=== PATIENT | male | born 1960 | race Caucasian/White ===

== ENCOUNTER 2024-04-05 15:36 | Emergency (ER) | payer MEDICARE, SELFPAY ==
[2024-04-05 16:00] VITALS: BP 106/73; PULSE 102; RESP 16; TEMP 36.9; O2SAT 94; BMI 19.0
--- NOTE | 2024-04-05 16:22 | ED_ITS ---
HPI - General Adult General: Chief complaint: General Medical Stated complaint: Feeding tube is clogged Time Seen by Provider: 04/05/24 15:47 History of Present Illness: 63-year-old male who presents to the [facility] room with complaints of blockage of his jejunostomy tube. It was placed 1 month ago. This was done at [facility]. He has not been able to infuse any liquid through it since yesterday. He denies any vomiting. No fever sweats or chills. No chest pain or abdominal pain. Associated symptoms: Deny chest pain, dyspnea or rash Related Data Allergies Allergy/AdvReac Type Severity Reaction Status Date / Time No Known Allergies Allergy Verified 04/05/24 16:03 Review of Systems Const: Denies: fever(s) or chills Card: Denies: chest pain Resp: Denies: dyspnea GI: Denies: abdominal pain : Denies: dysuria, urinary frequency or urinary urgency Musc: Denies: neck pain or back pain Skin/Breast: Denies: rash Physical Exam Const: COMMON NORMALS: no acute distress GENERAL APPEARANCE: cooperative and comfortable ORIENTATION/CONSCIOUSNESS: Yes awake, Yes oriented to person, Yes oriented to place and Yes oriented to time HENMT: COMMON NORMALS: normocephalic, atraumatic and hearing grossly normal bilaterally HEAD & SCALP: normocephalic and atraumatic Resp: COMMON NORMALS: normal respiratory effort, No retractions, No use of accessory muscles and clear to auscultation bilaterally AUSCULTATION: clear to auscultation bilaterally Cardio: COMMON NORMALS: regular rate, regular rhythm and No murmurs present (Cardio) RATE: regular rate RHYTHM: regular rhythm GI: COMMON NORMALS: Soft to palpation and No hepatosplenomegaly present AUSCULTATION: Yes normoactive bowel sounds PALPATION: Yes Soft to palpation, No Tenderness to palpation present (GI), No Guarding due to palpation present (GI) and Yes No hepatosplenomegaly present Extremity: COMMON NORMALS: normal to inspection, capillary refill normal, no clubbing, cyanosis or edema, no calf tenderness and no pedal edema Neuro: SENSORIUM/ORIENTATION: Yes oriented to person, Yes oriented to place and Yes oriented to time Skin: COMMON NORMALS: no rashes or lesions noted GENERAL SKIN EXAM: no rashes or lesions noted Course Vital Signs: Vital signs: Vital Signs Temperature 98.4 F 04/05/24 16:00 Pulse Rate 85 04/05/24 18:09 Respiratory Rate 16 04/05/24 16:00 Blood Pressure 99/74 04/05/24 18:09 Pulse Oximetry 94 04/05/24 18:09 Oxygen Delivery Me thod Room Air 04/05/24 17:14 MDM - General Adult Medical Decision Making Unable to flush PEG tube. He had a visit from home health nurse and advised him come to the emergency room. He has a tube that is essentially jejunostomy tube he had a placed about a month ago [facility] he is able to eat and drink. We do not have the equipment to replace urine and think we would be able to successfully do so and get a place back the way it was. I had Dr. Padgett look at it he concurs. He recommends leaving in place having patient follow-up with [facility] since he can still eat and drink and does not rely on the tube this can wait until next week. If he has worsening problems return to the emergency room. Lab Data Radiology Impressions Abdomen X-Ray 04/05/24 16:30 IMPRESSION: 1. Gastrojejunostomy tube tip presumably in the proximal jejunum. 2. Large volume colonic stool retention. Other degenerative and postsurgical findings detailed above. All radiology interpretation(s) finalized by discharge Discharge Plan Discharge Patient Disposition: Home Clinical Impression: Complication of feeding tube Condition: Stable Discharge Orders: Discharge ED (Routine); Ordered 04/05/24 Ordered By: Kimo White Discharge Diet: Usual diet Discharge Activity: Resume usual activity Patient Instructions: Opioid Safety, Pain Management Activity Restrictions/Additional Instructions: Thank you for choosing [facility] for your healthcare needs today. It is very important that you follow up as instructed or that you return to the Emergency Department should you have concerns or if your condition changes or worsens in any way. You are seen in the emergency room with complications of your feeding tube at this point your feeding tube was clogged or not able to flush it or even break up the clogged by probing. We do not have the appropriate equipment to replace this. That will need to be done at [facility]. We did have the surgeon come and see you in the emergency room and he concurred. Since you are still able to eat and drink by mouth recommend that you continue to take food and drink orally and follow-up as soon as you are able with [facility] to make arrangements for correcting the problem with the tube. If you have further problems or you develop nausea or vomiting return to the emergency room. Coding Level of Care Code ED Food Safety Technician for T[facility] Luna
--- NOTE | 2024-04-05 16:30 | XRR_ITS ---
PROCEDURE INFORMATION: Exam: XR Abdomen Exam date and time: 04/05/2024 4:50 PM Age: 63 years old Clinical indication: Device placement; Gi device; Gastrostomy, other and jejunostomy and peg tube; Prior surgery; Surgery date: 6+ months; Patient HX: Peg/gj tube malfunction; Pancreatitis; G/gj placed x 1 mo ago TECHNIQUE: Imaging protocol: Radiologic exam of the abdomen. Views: Frontal supine view of the abdomen. 1 View. COMPARISON: No relevant prior studies available. FINDINGS: Gastrointestinal tract: Large amount of retained colonic stool. Gastrojejunostomy overlying the central abdomen with the tip presumably in the proximal jejunum. Bones/joints: [id number] levoscoliosis of the upper lumbar spine. Multilevel lumbar fusion hardware at L3-L5. Moderate to severe degenerative discogenic changes of the right side of L2-L3 endplates. XR/XR abdomen 1V* [id number] IMPRESSION: 1. Gastrojejunostomy tube tip presumably in the proximal jejunum. 2. Large volume colonic stool retention. Other degenerative and postsurgical findings detailed above.
[2024-04-05 17:14] VITALS: BP 110/76; O2SAT 95
--- NOTE | 2024-04-05 17:57 | PM.CONSULT ---
Providers/Reason For Consult Consulting Physician/Specialty*: General Surgery Reason for Consult*: Occluded jejunostomy History of Present Illness History of Present Illness Jarrod Wiley is a 63 year old male who has history of chronic pancreatitis and gastric outlet obstruction and who about a month ago had a percutaneous gastrojejunostomy tube placement in [place] for nutritional supplementation, he has been doing nutritional supplementation every night and gaining weight bath since 2 nights ago he noticed the tube has been clotted and he does not allow it to be flushed. Review of Systems General: Reports: 10 or more systems reviewed and unremarkable except in HPI and below Medications/Allergies Allergies Allergy/AdvReac Type Severity Reaction Status Date / Time No Known Allergies Allergy Verified 04/05/24 16:03 Vitals/I&O/Wt Last Vital Signs Temp 98.4 F 04/05/24 16:00 Pulse 102 H 04/05/24 16:00 Resp 16 04/05/24 16:00 BP 110/76 04/05/24 17:14 Pulse Ox 95 04/05/24 17:14 O2 Del Method Room Air 04/05/24 17:14 Weight last 48 hrs Weight 148 lb Physical Exam GI: OTHER: Abdomen is soft nontender nondistended, there is a gastrojejunostomy tube in place, is completely occluded unable to relieve the occlusion despite several maneuvers including high-pressure irrigation, accessing the inner cannula with a small-diameter catheter and attempting to mechanically resolved obstruction. A&P Assessment and plan (1) Complication of feeding tube: Plan This a 63-year-old male with history of chronic pancreatitis and gastric outlet obstruction who recently received a percutaneous gastrojejunostomy tube to allow for nutritional supplementation, he has been using the tube for the last 4 weeks without issues but 2 nights ago he noticed that the tube will and flush, he presents for evaluation. I attempted several maneuvers to try to relieve the obstruction from the inner channel of the tube corresponding to the jejunostomy port and I once unable to, I do not have percutaneous gastrojejunostomy tubes available or the pulse to obtain my mechanical disimpaction of the distal portion of the tube. Since patient is able to eat tolerates diet and only uses the tube for supplemental nutrition I think is appropriate for him to continue follow-up as outpatient on Monday, he will contact his main surgeon to schedule an appointment to have the tube exchanged. His abdominal exam is benign he does not have any other symptoms or concerns. Patient shows understanding he is agreeable with the plan, warning signs were given to him he will return to our hospital as needed. Coding Level of Care Code 62519 Diagnoses Complication of feeding tube K94.20
[2024-04-05 18:09] VITALS: BP 99/74; PULSE 85; O2SAT 94
== END 2024-04-05 18:11 | disposition home or self-care (01) ==
PROVIDERS: Emergency Provider Family Medicine
DX: K94.23 Gastrostomy malfunction (principal)
CPT/HCPCS: 74018; 99283